=== PATIENT | female | born 1990 | race African-American/Black ===

== ENCOUNTER 2022-03-09 09:50 | Emergency (ER) | payer OTHER, SELFPAY ==
[2022-03-09] VITALS (30 sets, daily range): BP systolic 161–219; BP diastolic 123–169; PULSE 74–98; RESP 16; TEMP 36.6; O2SAT 94–100; BMI 34.3
--- NOTE | 2022-03-09 11:09 | ED.GENADULT ---
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 Typically she can take caffeine related products that will get better or Excedrin. She reports she has not been taking her hydrochlorothiazide and amlodipine for last couple of weeks, and typically should get a migraine headache when she does not take her medication. She simply has been busy with other activities and has for got her medicine, she says she can comply with this and has some at home. No focal neurologic findings, no chest pain, no breathing difficulty, no back pain, making urine adequately, and denies . Related Data Home Medications Medication Instructions Recorded Confirmed hydrochlorothiazide 25 mg tablet 25 mg PO DAILY 03/09/22 03/09/22 losartan 100 mg tablet 100 mg PO DAILY 03/09/22 03/09/22 Allergies Allergy/AdvReac Type Severity Reaction Status Date / Time No Known Drug Allergies Allergy Verified 03/09/22 10:10 Review of Systems Status of ROS: Reports: 6 or more systems reviewed and unremarkable except as noted in History and below PFSH COUNTS INCLUDE 234 BEDS AT THE [facility] Social History Smoking Status: Never smoker Do you use any of these nicotine containing products: None Second hand tobacco smoke exposure: No How often do you have a drink containing alcohol: never How often do you have six or more drinks on one occasion: Never AUDIT-C Alcohol total score: 0 Non-prescribed substance use: denies use service: No Exam Narrative: Exam Narrative: Objective patient's vital signs show markedly elevated blood pressure Alert orient x3, no distress Patient reports her headache is from her periorbital area on the left and radiates back to her occipital region, this is similar prior migraines No thunderclap nature to the headache onset Pupils aggression light extra moves intact no facial asymmetry next mouth is clear Neck is supple Neurologic grossly nonfocal Pulses regular Skin is warm and dry Const: Vital Signs, click to edit/add: Vital Signs - 24 hr 03/09/22 10:00 03/09/22 10:44 03/09/22 12:56 Temperature 97.9 F Pulse Rate Pulse Rate [Right Pulse Oximeter] 84 Respiratory Rate 16 Blood Pressure Blood Pressure [Ri ght Upper Arm] 219/151 H 191/134 H Pulse Oximetry 100 98 Oxygen Delivery Me thod Room Air Room Air 03/09/22 11:16 03/09/22 11:31 03/09/22 11:46 Temperature Pulse Rate Pulse Rate [Right Pulse Oximeter] Respiratory Rate Blood Pressure 196/151 H 200/147 H 197/147 H Blood Pressure [Ri ght Upper Arm] Pulse Oximetry Oxygen Delivery Me thod 03/09/22 12:02 03/09/22 12:17 03/09/22 12:32 Temperature Pulse Rate Pulse Rate [Right Pulse Oximeter] Respiratory Rate Blood Pressure 191/135 H 193/169 H 183/136 H Blood Pressure [Ri ght Upper Arm] Pulse Oximetry Oxygen Delivery Me thod 03/09/22 12:46 03/09/22 12:55 03/09/22 13:00 Temperature Pulse Rate 74 82 Pulse Rate [Right Pulse Oximeter] Respiratory Rate Blood Pressure 181/132 H Blood Pressure [Ri ght Upper Arm] Pulse Oximetry 96 97 Oxygen Delivery Me thod 03/09/22 13:01 03/09/22 13:17 03/09/22 13:30 Temperature Pulse Rate 79 75 75 Pulse Rate [Right Pulse Oximeter] Respiratory Rate Blood Pressure 173/127 H Blood Pressure [Ri ght Upper Arm] Pulse Oximetry 97 95 97 Oxygen Delivery Me thod 03/09/22 13:31 03/09/22 13:45 03/09/22 14:00 Temperature Pulse Rate 77 81 76 Pulse Rate [Right Pulse Oximeter] Respiratory Rate Blood Pressure 164/137 H Blood Pressure [Ri ght Upper Arm] Pulse Oximetry 95 94 94 Oxygen Delivery Me thod 03/09/22 14:01 03/09/22 14:15 03/09/22 14:30 Temperature Pulse Rate 76 78 79 Pulse Rate [Right Pulse Oximeter] Respiratory Rate Blood Pressure 161/127 H Blood Pressure [Ri ght Upper Arm] Pulse Oximetry 96 96 95 Oxygen Delivery Me thod 03/09/22 14:31 03/09/22 15:51 03/09/22 14:32 Temperature Pulse Rate 83 98 Pulse Rate [Right Pulse Oximeter] Respiratory Rate Blood Pressure 170/125 H Blood Pressure [Ri ght Upper Arm] 187/135 H Pulse Oximetry 95 94 Oxygen Delivery Me thod 03/09/22 15:00 03/09/22 15:01 03/09/22 15:35 Temperature Pulse Rate 80 83 78 Pulse Rate [Right Pulse Oximeter] Respiratory Rate Blood Pressure 171/123 H Blood Pressure [Ri ght Upper Arm] Pulse Oximetry 97 96 99 Oxygen Delivery Me thod 03/09/22 15:39 03/09/22 15:40 Temperature Pulse Rate 79 76 Pulse Rate [Right Pulse Oximeter] Respiratory Rate Blood Pressure 186/141 H Blood Pressure [Ri ght Upper Arm] Pulse Oximetry 98 99 Oxygen Delivery Me thod Course Vital Signs Vital signs: Initial Vital Signs Temperature 97.9 F 03/09/22 10:00 Temperature Source Temporal Artery Scan 03/09/22 10:00 Pulse Rate 84 03/09/22 10:00 Pulse Rhythm 03/09/22 10:00 Respiratory Rate 16 03/09/22 10:00 Blood Pressure 219/151 H 03/09/22 10:00 Blood Pressure Mean 173 03/09/22 10:00 Blood Pressure Position Sitting 03/09/22 10:00 Pulse Oximetry 100 03/09/22 10:00 Oxygen Delivery Method 03/09/22 10:00 Vital Signs Temperature 97.9 F 03/09/22 10:00 Pulse Rate 84 03/09/22 10:00 Respiratory Rate 16 03/09/22 10:00 Blood Pressure 219/151 H 03/09/22 10:00 Pulse Oximetry 100 03/09/22 10:00 Oxygen Delivery Method 03/09/22 10:00 Temperature 97.9 F 03/09/22 10:00 Pulse Rate 76 03/09/22 15:40 Respiratory Rate 16 03/09/22 10:00 Blood Pressure 187/135 H 03/09/22 15:51 Pulse Oximetry 99 03/09/22 15:40 Oxygen Delivery Method 03/09/22 12:56 Medical Decision Making MDM Narrative Medical decision making narrative: The patient has a migraine-type headache, often exacerbated by elevated blood pressure for her. She has been off her medications for a couple of weeks. And she will restart them. At this time I think we should do the following. Will treat her blood pressure with amlodipine 10 mg orally, will watch her blood pressure for period of time, treat her migraine headache with IV fluid Toradol, Reglan, Benadryl. Observe how she does in the ED. Will follow her blood pressure carefully, and also check heme 4 basic 7. Addendum: The patient's headache feels much better with the IV medication fluid, her systolic blood pressures come into the 180s, but her diastolic remains in the 120-130 range. Her pulse is in the 80s I think she could tolerate a beta-latasha will give her that in addition of the amlodipine. Will give her metoprolol 50 mg XL. I feel uncomfortable letting her go with a blood pressure that still remains quite high, and will watch her in the ER for period of time to make sure this improves, she can restart her blood pressure medicines tomorrow. Needs periodic blood pressure checks. Addendum: The patient continued to run a blood pressure 180/140, although her last was 178/128, she has been given a large amount of blood pressure medication including losartan metoprolol XL, amlodipine. She continues to run elevated blood pressure, she is now asymptomatic with no headache and feels better. After discussion and mutual decision making we elected to have her stay in the hospital on observation, I consulted with Dr. Corbin our hospitalist and she felt that was reasonable as well and will follow in hospital. The patient may continue to improve her blood pressure with the medications given, and be able to go he would either later tonight or early tomorrow. 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 Lab Data Labs: Lab Results 03/09/22 03/09/22 03/09/22 Range/Units 11:30 11:30 16:06 WBC 8.35 (4.50-11.00) K/uL RBC 5.41 H (4.00-5.20) m/uL Hgb 12.4 (12.0-16.0) gm/dL Hct 40.2 (33.0-51.0) % MCV 74 L (80-100) fL MCH 23 L (26-34) pg MCHC 31 L (32-36) gm/dL RDW Coeff of [place] 16.4 H (11.5-15.5) % Plt Count 495 H (140-440) K/uL Neut % (Auto) 69.7 (42.0-72.0) % Lymph % (Auto) 19.0 L (20-44) % [place] % (Auto) 8.5 (0.0-11.0) % Eos % (Auto) 1.9 (0.0-7.0) % Baso % (Auto) 0.4 (0.0-3.0) % Neut # (Auto) 5.82 (1.7-7.0) K/uL Lymph # (Auto) 1.60 (0.90-2.90) K/uL [place] # (Auto) 0.70 (0.00-0.90) K/UL Eos # (Auto) 0.16 (0.00-0.50) K/uL Baso # (Auto) 0.03 (0.00-0.30) K/uL Abs Immat Gran (auto) 0.04 (0.00-0.30) K/uL Sodium 139 (135-149) mmol/L Potassium 3.5 L (3.6-5.1) mmol/L Chloride 100 (96-114) mmol/L Carbon Dioxide 30 (20-32) mmol/L BUN 13 (5-24) mg/dL Creatinine 0.7 (0.5-1.5) mg/dL Estimated Creat Clear 141.75 Estimated GFR 119 ml/min Glucose 103 (60-115) mg/dL Calcium 8.5 (8.4-10.6) mg/dL SARS-CoV-2 (PCR) POSITIVE SARS-CoV-2 A (Negative) Discharge Plan Discharge Clinical Impression: Hypertensive urgency, Migraine Patient Disposition: Admitted As Inpatient Condition: Improved
[2022-03-09] MEDS: 0.9 % SODIUM CHLORIDE 1000 ml 1,000 ML 6000 ML IV (11:26)
[2022-03-09] MEDS: METOCLOPRAMIDE HCL 10 MG in 0.9 % SODIUM CHLORIDE 100 ml 100 ML 306 MG IV (11:26)
[2022-03-09] MEDS: AMLODIPINE 10 MG TABLET PO (11:26)
[2022-03-09] MEDS: KETOROLAC 30 MG/ML inj IVP (11:26)
[2022-03-09] MEDS: diphenhydrAMINE 50 MG/ML inj 25 MG IVP (11:26)
[2022-03-09 11:48] LABS: Basophils Absolute Auto 0.03 K/uL (0.00-0.30); Basophils Percent Auto 0.4 % (0.0-3.0); Eosinophils Absolute Auto 0.16 K/uL (0.00-0.50); Eosinophils Percent Auto 1.9 % (0.0-7.0); Hematocrit 40.2 % (33.0-51.0); Hemoglobin* 12.4 gm/dL (12.0-16.0); Immature Granulocytes Abs Auto 0.04 K/uL (0.00-0.30); Mean Corpuscular HGB Conc 31 gm/dL (32-36); Mean Corpuscular Hemoglobin 23 pg (26-34); Mean Corpuscular Volume 74 fL (80-100); Monocytes Percent Auto 8.5 % (0.0-11.0); Neutrophils Absolute Auto 5.82 K/uL (1.7-7.0); Neutrophils Percent Auto 69.7 % (42.0-72.0); Platelet Count* 495 K/uL (140-440); RDW Coefficient of Variation % 16.4 % (11.5-15.5); Red Blood Count 5.41 m/uL (4.00-5.20); White Blood Count* 8.35 K/uL (4.50-11.00)
[2022-03-09 12:00] LABS: Slide Review Reflex No
[2022-03-09 12:04] LABS: Chloride* 100 mmol/L (96-114); Sodium* 139 mmol/L (135-149)
[2022-03-09 12:05] LABS: Potassium* 3.5 mmol/L (3.6-5.1)
[2022-03-09 12:07] LABS: Creatinine* 0.7 mg/dL (0.5-1.5); Est. Creatinine Clearance* 141.75; Estimated Glomerular Filt Rate 119 ml/min
[2022-03-09 12:08] LABS: Blood Urea Nitrogen* 13 mg/dL (5-24); Calcium* 8.5 mg/dL (8.4-10.6); Carbon Dioxide* 30 mmol/L (20-32); Glucose* 103 mg/dL (60-115)
--- NOTE | 2022-03-09 12:50 | ED.NURSE ---
dr. esteves wanted manual bp checked, 188/124. auto bp was 181/132
[2022-03-09] MEDS: METOPROLOL SUCCINATE (XL) 50 MG TAB PO (13:45)
[2022-03-09] MEDS: LOSARTAN POTASSIUM 50 MG TABLET 100 MG PO (15:17)
--- NOTE | 2022-03-09 16:19 | W.PC.EDHO ---
Primary Language: Preferred Language: Orientation Status: [x] Alert & Oriented [] Slight Confusion [] Known Dx Dementia Transfers By: INDP [] Assist of 1 [] Assist of 2 [] Lift Active Medications Discontinued Medications Generic Name Dose Route Start Last Admin Trade Name Michelle PRN Reason Stop Dose Admin Amlodipine Besylate 10 mg 03/09/22 11:30 03/09/22 11:26 Amlodipine 10 Mg Tablet PO 03/09/22 11:31 10 mg ONCE ONE Administration Diphenhydramine HCl 25 mg 03/09/22 11:02 03/09/22 11:26 Diphenhydramine 50 Mg/Ml Inj IVP 03/09/22 11:03 25 mg ONCE ONE Administration Sodium Chloride 1,000 mls @ 6,000 mls/hr 03/09/22 11:15 03/09/22 11:59 0.9 % Sodium Chloride 1000 Ml IV 03/09/22 11:24 Infused .Q10M KELLE Infusion Metoclopramide HCl 10 mg/ 102 mls @ 306 mls/hr 03/09/22 11:02 03/09/22 11:59 Sodium Chloride IV 03/09/22 11:03 Infused ONCE ONE Infusion Ketorolac Tromethamine 30 mg 03/09/22 11:02 03/09/22 11:26 Ketorolac 30 Mg/Ml Inj IVP 03/09/22 11:03 30 mg ONCE ONE Administration Losartan Potassium 100 mg 03/09/22 14:45 03/09/22 15:17 Losartan Potassium 50 Mg Tablet PO 03/09/22 14:46 100 mg ONCE ONE Administration Metoprolol Succinate 50 mg 03/09/22 13:30 03/09/22 13:45 Metoprolol Succinate (Xl) 50 Mg Tab PO 03/09/22 13:31 50 mg ONCE ONE Administration Description of Symptoms ED Triage Present Problem Pt c/o headache that started yesterday around 3 pm Description . Pt states she has a hx of migraines. Hx of high blood pressure and states that she gets headaches with high blood pressure. Pt is suppose to be taking hCTZ and Amlodipine but has not been taking it for the past few weeks. Female History Date of last menstrual period 01/07/22 Hx Last Menstrual Period PCOS Patient No Triage Comment ED Triage Comment irregular cycles Pain Pain Description [Head] Tightness,Dull, Achy Pain Description [Head] Sharp Pain Intensity [Head] 5 Pain Intensity [Head] 8 Pain Intensity 5 Pain Scale Used [Head] Numeric (1 - 10) Pain Scale Used [Head] Numeric (1 - 10) Pain Scale Used Numeric (1 - 10) IV Insertion/Site Date of IV Line Insertion [ 03/09/22 Right Antecubital] Oxygen Administration Pulse Oximetry 99 Pulse Oximetry 98 Pulse Oximetry 99 Pulse Oximetry 96 Pulse Oximetry 97 Pulse Oximetry 94 Pulse Oximetry 95 Pulse Oximetry 95 Pulse Oximetry 96 Pulse Oximetry 96 Pulse Oximetry 94 Pulse Oximetry 94 Pulse Oximetry 95 Pulse Oximetry 97 Pulse Oximetry 95 Pulse Oximetry 97 Pulse Oximetry 97 Pulse Oximetry 98 Pulse Oximetry 96 Pulse Oximetry 100 Oxygen Delivery Method Room Air Oxygen Delivery Method Room Air
[2022-03-09 17:12] LABS: SARS PCR* POSITIVE SARS-CoV-2 (Negative)
--- NOTE | 2022-03-09 18:08 | ED.GENADULT ---
HPI - General Adult General Chief complaint: Headache/Migraine Stated complaint: Headache Time Seen by Provider: 03/09/22 10:14 Source: patient Mode of arrival: ambulatory Limitations: no limitations Related Data Home Medications Medication Instructions Recorded Confirmed hydrochlorothiazide 25 mg tablet 25 mg PO DAILY 03/09/22 03/09/22 losartan 100 mg tablet 100 mg PO DAILY 03/09/22 03/09/22 Allergies Allergy/AdvReac Type Severity Reaction Status Date / Time No Known Drug Allergies Allergy Verified 03/09/22 10:10 PFSH PFS Social History Smoking Status: Never smoker Do you use any of these nicotine containing products: None Second hand tobacco smoke exposure: No How often do you have a drink containing alcohol: never How often do you have six or more drinks on one occasion: Never AUDIT-C Alcohol total score: 0 Non-prescribed substance use: denies use service: No Exam Const: Vital Signs, click to edit/add: Vital Signs - 24 hr 03/09/22 10:00 03/09/22 10:44 03/09/22 12:56 Temperature 97.9 F Pulse Rate Pulse Rate [Right Pulse Oximeter] 84 Respiratory Rate 16 Blood Pressure Blood Pressure [Ri ght Upper Arm] 219/151 H 191/134 H Pulse Oximetry 100 98 [facility] Room Air 03/09/22 11:16 03/09/22 11:31 03/09/22 11:46 Temperature Pulse Rate Pulse Rate [Right Pulse Oximeter] Respiratory Rate Blood Pressure 196/151 H 200/147 H 197/147 H Blood Pressure [Ri ght Upper Arm] Pulse Oximetry Oxygen Delivery Ca thod 03/09/22 12:02 03/09/22 12:17 03/09/22 12:32 Temperature Pulse Rate Pulse Rate [Right Pulse Oximeter] Respiratory Rate Blood Pressure 191/135 H 193/169 H 183/136 H Blood Pressure [Ri ght Upper Arm] Pulse Oximetry Oxygen Delivery Ca thod 03/09/22 12:46 03/09/22 12:55 03/09/22 13:00 Temperature Pulse Rate 74 82 Pulse Rate [Right Pulse Oximeter] Respiratory Rate Blood Pressure 181/132 H Blood Pressure [Ri ght Upper Arm] Pulse Oximetry 96 97 [facility] 03/09/22 13:01 03/09/22 13:17 03/09/22 13:30 Temperature Pulse Rate 79 75 75 Pulse Rate [Right Pulse Oximeter] Respiratory Rate Blood Pressure 173/127 H Blood Pressure [Ri ght Upper Arm] Pulse Oximetry 97 95 97 Oxygen Delivery Me thod 03/09/22 13:31 03/09/22 13:45 03/09/22 14:00 Temperature Pulse Rate 77 81 76 Pulse Rate [Right Pulse Oximeter] Respiratory Rate Blood Pressure 164/137 H Blood Pressure [Ri ght Upper Arm] Pulse Oximetry 95 94 94 Oxygen Delivery Me thod 03/09/22 14:01 03/09/22 14:15 03/09/22 14:30 Temperature Pulse Rate 76 78 79 Pulse Rate [Right Pulse Oximeter] Respiratory Rate Blood Pressure 161/127 H Blood Pressure [Ri ght Upper Arm] Pulse Oximetry 96 96 95 Oxygen Delivery Me thod 03/09/22 14:31 03/09/22 15:51 03/09/22 14:32 Temperature Pulse Rate 83 98 Pulse Rate [Right Pulse Oximeter] Respiratory Rate Blood Pressure 170/125 H Blood Pressure [Ri ght Upper Arm] 187/135 H Pulse Oximetry 95 94 Oxygen Delivery Me thod 03/09/22 15:00 03/09/22 15:01 03/09/22 15:35 Temperature Pulse Rate 80 83 78 Pulse Rate [Right Pulse Oximeter] Respiratory Rate Blood Pressure 171/123 H Blood Pressure [Ri ght Upper Arm] Pulse Oximetry 97 96 99 Oxygen Delivery Me thod 03/09/22 15:39 03/09/22 15:40 Temperature Pulse Rate 79 76 Pulse Rate [Right Pulse Oximeter] Respiratory Rate Blood Pressure 186/141 H Blood Pressure [Ri ght Upper Arm] Pulse Oximetry 98 99 Oxygen Delivery Me thod Course Vital Signs Vital signs: Initial Vital Signs Temperature 97.9 F 03/09/22 10:00 Temperature Source Temporal Artery Scan 03/09/22 10:00 Pulse Rate 84 03/09/22 10:00 Pulse Rhythm 03/09/22 10:00 Respiratory Rate 16 03/09/22 10:00 Blood Pressure 219/151 H 03/09/22 10:00 Blood Pressure Mean 173 03/09/22 10:00 Blood Pressure Position Sitting 03/09/22 10:00 Pulse Oximetry 100 03/09/22 10:00 Oxygen Delivery Method 03/09/22 10:00 Vital Signs Temperature 97.9 F 03/09/22 10:00 Pulse Rate 84 03/09/22 10:00 Respiratory Rate 16 03/09/22 10:00 Blood Pressure 219/151 H 03/09/22 10:00 Pulse Oximetry 100 03/09/22 10:00 Oxygen Delivery Method 03/09/22 10:00 Temperature 97.9 F 03/09/22 10:00 Pulse Rate 76 03/09/22 15:40 Respiratory Rate 16 03/09/22 10:00 Blood Pressure 181/131 H 03/09/22 18:13 Pulse Oximetry 99 03/09/22 15:40 Oxygen Delivery Method 03/09/22 12:56 Medical Decision Making MDM Narrative Medical decision making narrative: The patient this point has a diagnosis of COVID, she was unaware that this was an issue. She really is asymptomatic for that. At this point she is contemplating going home as this has been very stressful for her. I strongly recommend that she stay in the hospital, have her blood pressure managed and reassessed, and blood pressure medication reinstated given they elevation or diastolic blood pressure. If she wishes to go home I think she fully understands the risks and benefits of doing so, and will sign an AMA slip prior to leaving. It is my best advice that she should stay in the hospital have her blood pressure managed. Such issues as stroke, other vascular issues could occur with an elevated blood pressure that would again escalate. Patient is deciding about her options at this point. Lab Data Labs: Lab Results 03/09/22 03/09/22 03/09/22 Range/Units 11:30 11:30 16:06 WBC 8.35 (4.50-11.00) K/uL RBC 5.41 H (4.00-5.20) m/uL Hgb 12.4 (12.0-16.0) gm/dL Hct 40.2 (33.0-51.0) % MCV 74 L (80-100) fL MCH 23 L (26-34) pg MCHC 31 L (32-36) gm/dL RDW Coeff of [place] 16.4 H (11.5-15.5) % Plt Count 495 H (140-440) K/uL Neut % (Auto) 69.7 (42.0-72.0) % Lymph % (Auto) 19.0 L (20-44) % [place] % (Auto) 8.5 (0.0-11.0) % Eos % (Auto) 1.9 (0.0-7.0) % Baso % (Auto) 0.4 (0.0-3.0) % Neut # (Auto) 5.82 (1.7-7.0) K/uL Lymph # (Auto) 1.60 (0.90-2.90) K/uL [place] # (Auto) 0.70 (0.00-0.90) K/UL Eos # (Auto) 0.16 (0.00-0.50) K/uL Baso # (Auto) 0.03 (0.00-0.30) K/uL Abs Immat Gran (auto) 0.04 (0.00-0.30) K/uL Sodium 139 (135-149) mmol/L Potassium 3.5 L (3.6-5.1) mmol/L Chloride 100 (96-114) mmol/L Carbon Dioxide 30 (20-32) mmol/L BUN 13 (5-24) mg/dL Creatinine 0.7 (0.5-1.5) mg/dL Estimated Creat Clear 141.75 Estimated GFR 119 ml/min Glucose 103 (60-115) mg/dL Calcium 8.5 (8.4-10.6) mg/dL SARS-CoV-2 (PCR) POSITIVE SARS-CoV-2 A (Negative) Discharge Plan Discharge Clinical Impression: Hypertensive urgency, Migraine Patient Disposition: Admitted As Inpatient Condition: Improved
--- NOTE | 2022-03-09 18:41 | ED.NURSE ---
Pt called software writer into room. Pt reports an increase in anxiety regarding her covid disgnosis. Pt is requesting to go home AMA. Dr esteves notified. Pt advised of risks of leaving AMA. AMA paperwork completed and signed my patient, dr esteves and software writer.
== END 2022-03-09 18:52 | disposition left against medical advice (07) ==
LOC: ED 16:09 → MEDSURG 18:37
PROVIDERS: Emergency Provider Family Medicine; PCP Physician Assistant Medical; Visit Provider Family Medicine
DX: R51.9 Headache, unspecified (principal); I16.0 Hypertensive urgency
CPT/HCPCS: 36415; 80048; 85025; 87635; 96374; 96375; 99284; A9270; J1200; J1885; J2765; J7030

== ENCOUNTER 2022-08-08 14:32 | Outpatient (CLI) | payer OTHER, SELFPAY ==
[2022-08-12 07:19] LABS: Renin Activity 11.9 ng/mL/hr
== END 2022-08-08 14:33 | disposition home or self-care (01) ==
PROVIDERS: PCP Physician Assistant Medical; Visit Provider Physician Assistant Medical
DX: I10 Essential (primary) hypertension (principal); R80.9 Proteinuria, unspecified
CPT/HCPCS: 82088; 83735; 84244; 84443; 87086

== ENCOUNTER 2022-08-11 15:23 | Outpatient (CLI) | payer OTHER, SELFPAY ==
[2022-08-11 22:04] LABS: C Reactive Protein* 1.3 mg/dL (0.5-1.0)
== END 2022-08-11 15:24 | disposition home or self-care (01) ==
LOC: LKVREF 15:42 → LAB 23:25
PROVIDERS: PCP Physician Assistant Medical; Visit Provider Physician Assistant Medical
DX: G93.6 Cerebral edema (principal); I10 Essential (primary) hypertension; R79.89 Other specified abnormal findings of blood chemistry; E66.9 Obesity, unspecified
CPT/HCPCS: 83835; 85660; 86140

== ENCOUNTER 2022-08-18 15:23 | Outpatient (CLI) | payer OTHER, SELFPAY ==
[2022-08-22 21:05] LABS: Hours Collected 24 hr; Normetanephrine Urine CRT 221 ug/g CRT (0-400); Total Volume 1450 mL
== END 2022-08-18 15:24 | disposition home or self-care (01) ==
PROVIDERS: PCP Physician Assistant Medical; Visit Provider Physician Assistant Medical
DX: I10 Essential (primary) hypertension (principal)
CPT/HCPCS: 83835

== ENCOUNTER 2022-10-03 19:17 | Outpatient (CLI) | payer OTHER, SELFPAY ==
--- NOTE | 2022-10-11 11:48 | W.PM.SLEEP ---
Sleep Study Details Details Interpreting Provider: Axel Date of Sleep Study: 10/03/22 Sleep Study Details: STUDY TYPE:? Home BMI:? Not recorded ORDERING PROVIDER:? Chance INDICATION:? Concerns about sleep apnea ? SLEEP SUMMARY:? 352 monitored minutes RESPIRATORY SUMMARY:? AHI 14.8, supine 16.3, left lateral 11.8 Low oxygen 82 34.6% of study oxygen was less than 90% Snoring 0% PERIODIC LIMB MOVEMENTS OF SLEEP:? Not recorded CARDIAC:? Range 58-105, mean 74.7 beats per minute IMPRESSION:? Mild to moderate obstructive sleep apnea with some supine position dependency. Significant hypo oxygenation was noted. RECOMMENDATION: Treatment options would include dental appliance, CPAP AutoSet 4-17 and/or airway expansion surgery. Once effective therapy is established would recommend an overnight oximetry study. If hypoxemia persists would recommend further cardiopulmonary evaluation.
== END 2022-10-03 19:18 | disposition home or self-care (01) ==
LOC: SLEEP 19:18
PROVIDERS: PCP Physician Assistant Medical; Visit Provider Physician Assistant Medical
DX: G47.33 Obstructive sleep apnea (adult) (pediatric) (principal)
CPT/HCPCS: 95806

== ENCOUNTER 2022-10-24 14:23 | Outpatient (CLI) | payer OTHER, SELFPAY | END 2022-10-24 14:24 | disposition home or self-care (01) | LOC: LKVREF 14:23 | PROVIDERS: PCP Physician Assistant Medical; Visit Provider Physician Assistant Medical | DX: Z00.00 Encounter for general adult medical examination without abnormal findings (principal); E66.9 Obesity, unspecified; I10 Essential (primary) hypertension; R80.9 Proteinuria, unspecified | CPT/HCPCS: 84443 ==

== ENCOUNTER 2023-09-25 11:54 | Outpatient (CLI) | payer OTHER, SELFPAY | END 2023-09-25 11:55 | disposition home or self-care (01) | PROVIDERS: PCP Physician Assistant Medical; Visit Provider Physician Assistant Medical | DX: I16.0 Hypertensive urgency (principal) | CPT/HCPCS: 82043; 82570; 84443 ==

== ENCOUNTER 2024-07-15 14:39 | Outpatient (CLI) | payer OTHER, SELFPAY | END 2024-07-15 14:40 | disposition home or self-care (01) | PROVIDERS: PCP Physician Assistant Medical; Visit Provider Physician Assistant Medical | DX: R73.03 Prediabetes (principal); I10 Essential (primary) hypertension; Z13.29 Encounter for screening for other suspected endocrine disorder | CPT/HCPCS: 82043; 82570; 84443 ==

== ENCOUNTER 2024-07-19 13:28 | Outpatient (CLI) | payer OTHER, SELFPAY | END 2024-07-19 13:29 | disposition home or self-care (01) | LOC: NFLDREF 07-28 16:27 | PROVIDERS: PCP Physician Assistant Medical; Referring Provider Physician Assistant Medical; Visit Provider Physician Assistant Medical | DX: R70.0 Elevated erythrocyte sedimentation rate (principal); M54.9 Dorsalgia, unspecified; R82.998 Other abnormal findings in urine; R79.89 Other specified abnormal findings of blood chemistry; R80.9 Proteinuria, unspecified; D64.9 Anemia, unspecified; I1A.0 Resistant hypertension | CPT/HCPCS: 82746; 83021; 85045; 86141; 86200; 86431; 86592; 86703; 86812 ==

== ENCOUNTER 2024-07-30 11:51 | Outpatient (CLI) | payer OTHER, SELFPAY | END 2024-07-30 11:52 | disposition home or self-care (01) | PROVIDERS: PCP Physician Assistant Medical; Visit Provider Emergency Medicine | DX: D64.9 Anemia, unspecified (principal) | CPT/HCPCS: 80048; 80076; 83010; 83615 ==

== ENCOUNTER 2025-03-14 15:29 | Outpatient (CLI) | payer OTHER, SELFPAY | END 2025-03-14 15:30 | disposition home or self-care (01) | PROVIDERS: PCP Physician Assistant Medical; Visit Provider Physician Assistant Medical | DX: R73.09 Other abnormal glucose (principal); D64.9 Anemia, unspecified; I10 Essential (primary) hypertension; I1A.0 Resistant hypertension | CPT/HCPCS: 80053; 82043; 82570; 82784; 84443; 86140; 86231; 86258; 86364; 86376 ==